=== PATIENT | male | born 1980 | race Hispanic/Latino ===

== ENCOUNTER 2020-05-07 05:29 | Observation (INO) | payer OTHER ==
[~2020-05-07] VITALS: Ht 172.7 cm; Wt 97.5 kg
[2020-05-07] VITALS (8 sets, daily range): BP systolic 98–163; BP diastolic 73–103
[2020-05-07] MEDS ORDERED: ACETAMINOPHEN 325 MG TAB PO ONE (05:45)
[2020-05-07] MEDS ORDERED: NITROGLYCERIN 2% OINT 1 GM PKT TOP ONE (05:45)
[2020-05-07] MEDS ORDERED: NITROGLYCERIN 2% OINT 1 GM PKT ONE (05:53)
--- NOTE | 2020-05-07 06:06 | Emergency Department Note ---
History of Present Illnes History of Present Illness Chief Complaint: Chest Pain History of Present Illness This is a 40 year old male presents with complaint of left-sided chest pain radiating to left shoulder since 1 AM states it woke him up out of sleep. States took 4 baby aspirin but the pain would go away pain subsided but never went away states pain and initially was 7 on a 10 scale currently 3 out of 10. Patient also reports he took his blood pressure before coming in at home was 187/120 patient does have a history of high blood pressure however is been off his blood pressure medications for the last 2 months. Denies family history of heart disease with his family history of hypertension.. Historian: Patient Arrival Mode: Car Onset (how long ago): hour(s) (4) Location: CHEST Quality: PAIN Radiation: Reports other (LEFT SHOUDLER) Severity: moderate Onset quality: sudden Duration (how long): hour(s) (4) Progression: improving Chronicity: new Context: Denies recent illness, Denies recent surgery Relieving factors: none Exacerbating factors: none Associated symptoms: Reports denies other symptoms Treatments prior to arrival: aspirin (324 MG) Past Medical/Family History Physician Review I have reviewed the patient's past medical and family history. Any updates have been documented here. Past Medical History Recent Fever: No Clinical Suspicion of Infectio: No New/Unexplained Change in Ment: No Past Medical History: Hypertension Past Surgical History: None Social History Smoking Cessation: Former smoker Counseling Performed: No Alcohol Use: Social Any Illegal Drug Use: No TB Exposure/Symptoms: No Physically hurt or threatened: No Family History Family history of heart diseas: No Other family history HTN Other Last Tetanus: DENIES Is patient up to date on immun: Yes Last Flu: DENIES Last Pneumovax: DENIES Review of Systems Review of Systems Constitutional: Reports no symptoms EENTM: Reports no symptoms Cardiovascular: Reports as per HPI Respiratory: Reports no symptoms Gastrointestinal: Reports no symptoms Genitourinary: Reports no symptoms Musculoskeletal: Reports no symptoms Integumentary: Reports no symptoms Neurological: Reports no symptoms Psychological: Reports no symptoms Endocrine: Reports no symptoms Hematological/Lymphatic: Reports no symptoms Physical Exam Related Data Allergies: Coded Allergies: No Known Allergies (Unverified , 05/07/20) Triage Vital Signs Vital Signs Date Time Temp Pulse Resp B/P (MAP) Pulse Ox O2 Delivery O2 Flow Rate FiO2 05/07/20 05:41 99.2 93 20 178/107 97 Vital signs reviewed: Yes Physical Exam CONSTITUTIONAL Constitutional: Present well-developed, Present well-nourished HENT HENT: Present normocephalic, Present atraumatic, Present oropharynx clear/moist, Present nose normal HENT L/R: Present left ext ear normal, Present right ext ear normal EYES Eyes: Reports PERRL, Reports conjunctivae normal NECK Neck: Present ROM normal PULMONARY Pulmonary: Present effort normal, Present breath sounds normal CARDIOVASCULAR Cardiovascular: Present regular rhythm, Present heart sounds normal, Present capillary refill normal, Present normal rate GASTROINTESTINAL Abdominal: Present soft, Present nontender, Present bowel sounds normal GENITOURINARY Genitourinary: Present exam deferred SKIN Skin: Present warm, Present dry MUSCULOSKELETAL Musculoskeletal: Present ROM normal NEUROLOGICAL Neurological: Present alert, Present oriented x 3, Present no gross motor or sensory deficits PSYCHOLOGICAL Psychological: Present mood/affect normal, Present judgement normal Results Laboratory Laboratory Laboratory Tests Test 05/07/20 05:56 White Blood Count 12.79 x10e3/uL (4.8-10.8) Red Blood Count 4.85 x10e6/uL (4.3-5.7) Hemoglobin 16.1 g/dL (14.0-18.0) Hematocrit 46.3 % (38.2-49.6) Mean Corpuscular Volume 95.5 fL (81-99) Mean Corpuscular Hemoglobin 33.2 pg (28-32) Mean Corpuscular Hemoglobin Concent 34.8 g/dL (31-35) Red Cell Distribution Width 12.7 % (11.7-14.4) Platelet Count 239 x10e3/uL (140-360) Neutrophils (%) (Auto) 63.9 % (38.7-80.0) Lymphocytes (%) (Auto) 25.2 % (18.0-39.1) Monocytes (%) (Auto) 6.8 % (4.4-11.3) Eosinophils (%) (Auto) 3.1 % (0.0-6.0) Basophils (%) (Auto) 0.5 % (0.0-1.0) Neutrophils # (Auto) 8.2 (2.1-6.9) Lymphocytes # (Auto) 3.2 (1.0-3.2) Monocytes # (Auto) 0.9 (0.2-0.8) Eosinophils # (Auto) 0.4 (0.0-0.4) Basophils # (Auto) 0.1 (0.0-0.1) Absolute Immature Granulocyte (auto 0.06 x10e3/uL (0-0.1) Prothrombin Time 11.9 seconds (11.9-14.5) Prothromb Time International Ratio 0.83 Activated Partial Thromboplast Time 27.2 seconds (23.8-35.5) Sodium Level 138 mmol/L (136-145) Potassium Level 3.8 mmol/L (3.5-5.1) Chloride Level 105 mmol/L (98-107) Carbon Dioxide Level 23 mmol/L (22-29) Anion Gap 13.8 mmol/L (8-16) Blood Urea Nitrogen 13 mg/dL (7-26) Creatinine 1.00 mg/dL (0.72-1.25) Estimat Glomerular Filtration Rate > 60 ML/MIN (60-) BUN/Creatinine Ratio 13 (6-25) Glucose Level 118 mg/dL (74-118) Calcium Level 9.6 mg/dL (8.4-10.2) Total Bilirubin 0.4 mg/dL (0.2-1.2) Aspartate Amino Transf (AST/SGOT) 19 IU/L (5-34) Alanine Aminotransferase (ALT/SGPT) 44 IU/L (0-55) Alkaline Phosphatase 104 IU/L (40-150) Creatine Kinase 127 IU/L (30-200) Creatine Kinase MB 0.90 ng/mL (0-5.0) Troponin I 0.009 ng/mL (0-0.300) B-Type Natriuretic Peptide 10.1 pg/mL (0-100) Total Protein 7.7 g/dL (6.5-8.1) Albumin 4.1 g/dL (3.5-5.0) Globulin 3.6 g/dL (2.3-3.5) Albumin/Globulin Ratio 1.1 (0.8-2.0) Lab results reviewed: Yes Imaging Imaging results reviewed: Yes Impressions EXAMINATION: CHEST SINGLE (PORTABLE) INDICATION: ^CHEST PAIN ^[id number] ^624 ^Y COMPARISON: None FINDINGS: AP view TUBES and LINES: None. LUNGS: Lungs are well inflated. Mild left basilar haziness. PLEURA: No pleural effusion or pneumothorax. HEART AND MEDIASTINUM: The cardiomediastinal silhouette is mildly prominent on this AP view. BONES AND SOFT TISSUES: No acute osseous lesion. Soft tissues are unremarkable. UPPER ABDOMEN: No free air under the diaphragm. IMPRESSION: Mild left basilar haziness, representing subsegmental atelectasis versus developing pneumonia in the appropriate clinical context. Signed by: Dr. Geovany [place] MD on 05/07/2020 6:36 AM Dictated By: GEOVANY [place] MD 5 Transcribed By: SHERRIE on 05/07/20635 COPY TO: OXANA RUVALCABA MD~ Procedures 12 Lead ECG Interpretation ECG Interpretation : ECG: ECG 1 Ore Charger: Interpreted by ED physician Date: May 07, 2020 Time: 05:46 Rhythm: sinus rhythm Rate: normal BPM: 90 QRS axis: normal ST segments normal: Yes T waves normal: Yes Other findings: no other findings Clinical Impression: normal ECG Assessment & Plan Medical Decision Making MDM Patient left sided chest pain rating left shoulder and elevated blood pressure. CBC, CMP, cardiac enzymes, BNP, chest x-ray, EKG, ordered to eval for myocardial infarction, intrathoracic abnormality, which light abnormality, pulmonary edema. Database 1 inch ordered to chest wall. I spoke with Dr. Arnago and Dr. Abigail Ortiz covering for Dr. Pearson Place patient in oBS FOR cardiac rule out and echocardiogram. Radiologist read patient's chest x-ray as left lower lobe haziness atelectasis versus pneumonia. Due to this Covid 19 test ordered to rule out Covid 19. Patient started on Rocephin and Zithromax IV. Dr. Dixon informed. Assessment & Plan Final Impression: (1) Chest pain (2) HTN (hypertension) (3) Pneumonia Depart Disposition: ADMITTED Last Vital Signs Date Time Temp Pulse Resp B/P (MAP) Pulse Ox O2 Delivery O2 Flow Rate FiO2 05/07/20 05:51 178/107 05/07/20 05:41 99.2 93 20 97 Medications in the ED Nitroglycerin 1 gm ONCE ONCE TOP Last administered on 05/07/20at 05:51; Admin Dose 1 GM; Start 05/07/20 at 05:45; Stop 05/07/20 at 05:46; Status DC Acetaminophen 650 mg ONCE ONCE PO Last administered on 05/07/20at 05:51; Admin Dose 650 MG; Start 05/07/20 at 05:45; Stop 05/07/20 at 05:53; Status DC Nitroglycerin 1 gm STK-MED ONCE .ROUTE ; Start 05/07/20 at 05:53; Stop 05/07/20 at 05:47; Status DC OXANA RUVALCABA MD May 07, 2020 06:06
[2020-05-07 06:07] LABS: BASOPHILS # (AUTO) 0.1 (0.0-0.1); BASOPHILS % 0.5 % (0.0-1.0); EOSINOPHILS # (AUTO) 0.4 (0.0-0.4); EOSINOPHILS % 3.1 % (0.0-6.0); HEMATOCRIT 46.3 % (38.2-49.6); HEMOGLOBIN 16.1 g/dL (14.0-18.0); LYMPHOCYTES # (AUTO) 3.2 (1.0-3.2); LYMPHOCYTES % 25.2 % (18.0-39.1); MEAN CORPUSCULAR HEMOGLOBIN 33.2 pg (28-32); MEAN CORPUSCULAR HGB CONC 34.8 g/dL (31-35); MEAN CORPUSCULAR VOLUME 95.5 fL (81-99); MONOCYTES # (AUTO) 0.9 (0.2-0.8); MONOCYTES % 6.8 % (4.4-11.3); NEUTROPHILS # (AUTO) 8.2 (2.1-6.9); NEUTROPHILS % 63.9 % (38.7-80.0); PLATELET COUNT 239 x10e3/uL (140-360); RED BLOOD COUNT 4.85 x10e6/uL (4.3-5.7); RED CELL DISTRIBUTION WIDTH 12.7 % (11.7-14.4)
[2020-05-07 06:19] LABS: INR 0.83; PROTHROMBIN TIME 11.9 seconds (11.9-14.5)
[2020-05-07 06:20] LABS: PARTIAL THROMBOPLASTIN TIME 27.2 seconds (23.8-35.5)
[2020-05-07 06:32] LABS: ALANINE AMINOTRANSFERASE 44 IU/L (0-55); ALBUMIN 4.1 g/dL (3.5-5.0); ALBUMIN/GLOBULIN RATIO 1.1 (0.8-2.0); ALKALINE PHOSPHATASE 104 IU/L (40-150); ANION GAP 13.8 mmol/L (8-16); BLOOD UREA NITROGEN 13 mg/dL (7-26); BUN/CREATININE RATIO 13 (6-25); CALCIUM 9.6 mg/dL (8.4-10.2); CARBON DIOXIDE 23 mmol/L (22-29); CHLORIDE 105 mmol/L (98-107); CREATINE KINASE 127 IU/L (30-200); EST GLOMERULAR FILTRATION RATE > 60 ML/MIN (60-); GLUCOSE 118 mg/dL (74-118); POTASSIUM 3.8 mmol/L (3.5-5.1); SODIUM 138 mmol/L (136-145)
--- NOTE | 2020-05-07 06:39 | Diagnostic Imaging Report ---
EXAMINATION: CHEST SINGLE (PORTABLE) INDICATION: ^CHEST PAIN ^[id number] ^0625 ^Y COMPARISON: None FINDINGS: AP view TUBES and LINES: None. LUNGS: Lungs are well inflated. Mild left basilar haziness. PLEURA: No pleural effusion or pneumothorax. HEART AND MEDIASTINUM: The cardiomediastinal silhouette is mildly prominent on this AP view. BONES AND SOFT TISSUES: No acute osseous lesion. Soft tissues are unremarkable. UPPER ABDOMEN: No free air under the diaphragm. IMPRESSION: Mild left basilar haziness, representing subsegmental atelectasis versus developing pneumonia in the appropriate clinical context. Signed by: Dr. Geovany Kaur MD on 05/07/2020 6:36 AM
[2020-05-07] MEDS ORDERED: AZITHROMYCIN 500MG/NS 250 ML 250 ML IV SCH (06:45)
[2020-05-07] MEDS ORDERED: ONDANSETRON HCL INJ 2MG/ML 2ML 2 MG/ML VIAL IV PRN (06:45)
[2020-05-07] MEDS: CEFTRIAXONE SOD 1 GM/NS 50 ML 50 ML IV SCH (06:55)
[2020-05-07] MEDS: FAMOTIDINE 20 MG/2 ML VIAL IV SCH ×2 (07:04→18:59)
--- OUTSIDE RECORDS SUMMARY | 2020-05-07 07:20 | XMS REPORT | Continuity of Care Document ---
Author Author [facility] Organization [facility] Address [address] [place] [address] [address] [place] [address] Phone Unavailable Care Team Providers Care Certified Coding Specialist Name Role Phone Nae RUVALCABA Attphys Unavailable TRISTON SANCHEZphys Unavailable Problems This patient has no known problems. Allergies, Adverse Reactions, Alerts This patient has no known allergies or adverse reactions. Medications This patient has no known medications. Procedures This patient has no known procedures. Results Test Description Test Time Test Comments Results Result Comments Source CHEST SINGLE (PORTABLE) 2020-05-07 06:35:[address] [address] Patient Name: SONYA JIMENEZ MR #: [id number] : 1980 Age/Sex: 40/M Req #: [id number] [facility] Physician: Ordered by: OXANA RUVALCABA MD Report #: [id number] Location: ER Room/Bed: Procedure: [id number] DX/CHEST SINGLE (PORTABLE) Exam Date: 05/07/20 Exam Time: 624 REPORT STATUS: Signed EXAMINATION: CHEST SINGLE (PORTABLE) INDICATION: CHEST PAIN [id number] Y COMPARISON: None FINDINGS: AP view TUBES and LINES: None. LUNGS: Lungs are well inflated. Mild left basilar haziness. PLEURA: No pleural effusion or pneumothorax. HEART AND MEDIASTINUM: The cardiomediastinal silhouette is mildly prominent on this AP view. BONES AND SOFT TISSUES: No acute osseous lesion. Soft tissues are unremarkable. UPPER ABDOMEN: No free air under the diaphragm. IMPRESSION: Mild left basilar haziness, representing subsegmental atelectasis versus developing pneumonia in the appropriate clinical context. Signed by: Dr. Geovany [place] MD on 05/07/2020 6:36 AM Dictated By: GEOVANY [place] MD 5 Transcribed By: SHERRIE on 05/07/20635 COPY TO: OXANA RUVALCABA MD
--- NOTE | 2020-05-07 08:04 | NUR ---
Report attempted was told that nurse would call back.
--- NOTE | 2020-05-07 08:55 | NUR ---
Received patient from ER via stretcher. AAOX4 to time, person, place, situation. Respirations even and unlabored. Tele #[phone] with 1st degree block. Denies chest pain. Oriented to room. Instructed to use call light for assistance. Voiced understanding.
[2020-05-07] MEDS ORDERED: ASPIR 8181 MG PO (09:28)
[2020-05-07] MEDS ORDERED: losartan PO (09:42)
--- NOTE | 2020-05-07 10:02 | Consultation ---
DATE OF CONSULTATION: Pulmonary Critical Care Consultation CHIEF COMPLAINT: Chest pain. HISTORY OF PRESENT ILLNESS: The patient is a 40-year-old man. He has no prior history of cardiopulmonary disease. He reports pain in the upper left chest for 2-3 days. The pain is fairly constant and does not change with respiration. It does not change with movement. It is not related to exertion. After arriving in the Emergency Department, he was found to have a chest x-ray with infiltrate, suggestive of viral pneumonia. His also tested positive for COVID-19. He denies any fever or cough. He is not having any nausea or vomiting. PAST SURGICAL HISTORY: Noncontributory. PAST MEDICAL HISTORY: 1. No prior cardiac disease. 2. No prior asthma or respiratory problems. 3. No history of diabetes. 4. Hypertension. ALLERGIES: NO KNOWN DRUG ALLERGIES. FAMILY HISTORY: His tested positive for COVID. SOCIAL HISTORY: The patient is not an active smoker or an active drinker. REVIEW OF SYSTEMS: There is no fever. He is not having any headache. He has no neck pain. He is not having any cough. He does not complain of dyspnea. He does have some chest pain on the left side near his shoulder and pectoralis area. He does not complain of any nausea or vomiting. There is no leg edema. He has no neurological abnormalities. OBJECTIVE: VITAL SIGNS: The patient is afebrile. The blood pressure is 150/102, saturation is 98% and the pulse is 85. Respiratory rate is 18. HEENT: Shows no facial swelling or erythema. CARDIAC: Reveals regular rate and rhythm with normal S1 and S2. LUNGS: Auscultation of lungs reveal crackles at the bases. There is no wheezing. ABDOMEN: Soft, nontender. There is no rebound or guarding. EXTREMITIES: Shows no leg edema or calf tenderness. There is no cyanosis or clubbing. SKIN: Shows no rashes. NEUROLOGICAL: Shows no focal abnormalities. LABORATORY DATA: BUN to creatinine ratio is normal. Other electrolytes are within normal limits. White blood cell count is 12.8, hemoglobin is 16.1. The platelet count is 234. RADIOGRAPHIC DATA: Chest x-ray shows left basilar haziness representing subsegmental atelectasis versus pneumonia. ASSESSMENT: 1. Viral pneumonia. 2. Hypertension. 3. Chest pain. PLAN: 1. Cardiac enzymes. Echocardiogram and Cardiology evaluation. 2. Antibiotics. 3. COVID-19 testing. 4. Lovenox. MD ZACH Roman/LORI /[id number]
[2020-05-07] MEDS: ASPIRIN 81 MG ENTERIC COATED PO SCH (11:51)
[2020-05-07] MEDS: NITROGLYCERIN 2% OINT 1 GM PKT TOP SCH ×2 (12:00→16:47)
--- NOTE | 2020-05-07 12:45 | NUR ---
aware patient covid +
--- NOTE | 2020-05-07 15:33 | Consultation ---
DATE OF CONSULTATION: 05/07/2020 Cardiology Consultation REQUESTING PHYSICIAN: Owen Dee MD. REASON FOR CONSULTATION: Chest pain. HISTORY OF PRESENT ILLNESS: This is a 40-year-old man with history of hypertension, hyperlipidemia, who presents with complaints of chest pain. The patient reports he has been having chest pain and shortness of breath for the last couple days, described the chest pain as in his left upper chest with radiation to the shoulder and left arm. He notes the pain is worse with lying down and is unchanged with walking. The pain worsened last night such that it was 7/10 in severity and he noted his blood pressure was elevated, so he presented to the ER for further evaluation. The patient denies any nausea, but does note he has been having night sweats as well as shortness of breath when he lays down for the last few nights. He denies any fever, edema, or paroxysmal nocturnal dyspnea. Of note, his was reported to be COVID-19 positive. REVIEW OF SYSTEMS: Negative except as per HPI. PAST MEDICAL HISTORY: Hypertension and hyperlipidemia. PAST SURGICAL HISTORY: Denies. ALLERGIES: NO KNOWN DRUG ALLERGIES. MEDICATIONS: Please see medication list. SOCIAL HISTORY: Denies tobacco or illicit drugs. Does endorse alcohol use. FAMILY HISTORY: Pertinent for brother with hypertension. PHYSICAL EXAMINATION: VITAL SIGNS: Temperature 98.1 degrees, pulse 80, respiratory rate 19, blood pressure 147/102, and oxygen saturation 98% on room air. The patient was not examined. LABORATORY DATA: WBC 12.79, hemoglobin 16.1, hematocrit 46.3, platelets 239. Sodium 138, potassium 3.8, chloride 105, CO2 of 23, BUN 13, and creatinine 1. COVID-19 positive. EKG normal sinus rhythm, normal ECG. Echocardiogram was reviewed with normal LV size and systolic function. LVEF is 55-60%. Diastolic filling pattern indicates impaired relaxation. There were no significant valvular abnormalities. Right ventricle systolic pressure could not be estimated due to lack of adequate TR jet. IMPRESSION: 1. Coronavirus disease - 19, positive. 2. Viral pneumonia secondary to above. 3. Chest pain. 4. Hypertension. 5. Hyperlipidemia. RECOMMENDATIONS: Trend troponin to rule out myocardial infarction. If the patient rules out, no further cardiac evaluation will be indicated at this time. Recommend outpatient ischemic evaluation once he has recovered from his current illness. Start losartan for blood pressure control. Fasting lipid panel in the morning. Thank you for this consult. We will continue to follow. Abigail Arce MD ABS/MODL /[id number]
[2020-05-07] MEDS: LOSARTAN POTASSIUM 100 MG TAB PO SCH (16:47)
[2020-05-07] MEDS: ACETAMINOPHEN 325 MG TAB PO PRN (16:47)
[2020-05-07] MEDS ORDERED: ENOXAPARIN SOD INJ 40 MG/0.4 ML SYR SC SCH (17:00)
[2020-05-07 17:30] LABS: CREATINE KINASE MB 0.7 ng/mL (0-5.0)
--- NOTE | 2020-05-07 19:23 | NUR ---
Report given to oncoming nurse of patient's status. Resting in bed. No s/s of acute distress noted. Side rails upx2, call light within reach.
--- NOTE | 2020-05-07 21:32 | NUR ---
Patient sitting on a chair. Complain of headache. Patient states he had headache since Nitrobid was started. He doesn't want any medication at this time. Refused bed alarm and states he don't need it. No complain of dizziness or light headedness. Bed in lowest position and locked. Educated to used call light for assistance. Patient expressed understanding.
[2020-05-08] VITALS: BP 139/82
[2020-05-08] MEDS: ACETAMINOPHEN 325 MG TAB PO PRN ×2 (01:42→12:16)
[2020-05-08 04:00] VITALS: BP 117/75
[2020-05-08] MEDS ORDERED: SODIUM CHLORIDE 0.9% 250ML 250 ML ONE (05:16)
[2020-05-08] MEDS: NITROGLYCERIN 2% OINT 1 GM PKT TOP SCH ×3 (05:40→11:44)
[2020-05-08] MEDS: FAMOTIDINE 20 MG/2 ML VIAL IV SCH (05:40)
[2020-05-08] MEDS: CEFTRIAXONE SOD 1 GM/NS 50 ML 50 ML IV SCH (05:40)
[2020-05-08 06:00] LABS: BASOPHILS % 0.5 % (0.0-1.0); EOSINOPHILS # (AUTO) 0.3 (0.0-0.4); EOSINOPHILS % 3.1 % (0.0-6.0); HEMOGLOBIN 15.9 g/dL (14.0-18.0); LYMPHOCYTES # (AUTO) 2.3 (1.0-3.2); LYMPHOCYTES % 27.1 % (18.0-39.1); MEAN CORPUSCULAR HGB CONC 35.3 g/dL (31-35); MEAN CORPUSCULAR VOLUME 96.4 fL (81-99); MONOCYTES # (AUTO) 0.6 (0.2-0.8); MONOCYTES % 7.6 % (4.4-11.3); NEUTROPHILS # (AUTO) 5.2 (2.1-6.9); NEUTROPHILS % 61.5 % (38.7-80.0); PLATELET COUNT 215 x10e3/uL (140-360); RED BLOOD COUNT 4.67 x10e6/uL (4.3-5.7); RED CELL DISTRIBUTION WIDTH 12.6 % (11.7-14.4)
[2020-05-08 06:34] LABS: ALANINE AMINOTRANSFERASE 38 IU/L (0-55); ALBUMIN 3.8 g/dL (3.5-5.0); ALBUMIN/GLOBULIN RATIO 1.1 (0.8-2.0); ALKALINE PHOSPHATASE 77 IU/L (40-150); ANION GAP 14.8 mmol/L (8-16); BLOOD UREA NITROGEN 8 mg/dL (7-26); BUN/CREATININE RATIO 9 (6-25); CALCIUM 9.6 mg/dL (8.4-10.2); CARBON DIOXIDE 21 mmol/L (22-29); CHLORIDE 106 mmol/L (98-107); CREATININE, SERUM 0.85 mg/dL (0.72-1.25); EST GLOMERULAR FILTRATION RATE > 60 ML/MIN (60-); GLUCOSE 109 mg/dL (74-118); POTASSIUM 3.8 mmol/L (3.5-5.1); SODIUM 138 mmol/L (136-145)
[2020-05-08 07:00] LABS: CREATINE KINASE MB 0.4 ng/mL (0-5.0)
[2020-05-08 08:00] VITALS: BP 124/84
[2020-05-08 08:09] LABS: CHOL/HDL RATIO 5.2 (3.9-4.7)
[2020-05-08 09:00] VITALS: BP 124/84
[2020-05-08] MEDS ORDERED: AZITHROMYCIN 500MG/NS 250 ML 250 ML IV SCH (09:00)
[2020-05-08] MEDS: LOSARTAN POTASSIUM 100 MG TAB PO SCH (09:34)
[2020-05-08] MEDS: ASPIRIN 81 MG ENTERIC COATED PO SCH (09:34)
[2020-05-08 12:54] VITALS: BP 172/97
--- NOTE | 2020-05-08 13:03 | Consultation ---
DATE OF CONSULTATION: HISTORY OF PRESENT ILLNESS: This is a 40-year-old male, no past medical history, comes in with pain in left upper chest for 2 to 3 days, not feeling well, came to the emergency room. Chest x-ray was negative for pneumonia. COVID-19 was positive, so he is being admitted. PAST MEDICAL HISTORY: Denies. PAST SURGICAL HISTORY: Denies. ALLERGIES: NKA. SOCIAL HISTORY: There is no smoking, drug abuse, or alcohol abuse. FAMILY HISTORY: Unremarkable. PHYSICAL EXAMINATION: GENERAL: He is currently alert, oriented, does not seem in acute distress. VITAL SIGNS: Stable, afebrile. HEENT: Not icteric. NECK: Supple. CHEST: Clear. ABDOMEN: Soft. Bowel sounds present. EXTREMITIES: No edema. SKIN: No rash. IMPRESSION: COVID-19, present on admission. Clinically doing well. He is being evaluated by Cardiology. From Infectious Disease point of view, he is stable to be discharged once he is cleared by Cardiology. We will continue as ordered. We will follow. MD MYRANDA Oscar/MODNae /[id number]
[2020-05-08] MEDS ORDERED: ONDANSETRON HCL 4 MG ORAL DISINTEGRATING TAB PO PRN (13:30)
--- NOTE | 2020-05-08 13:31 | NUR ---
Patient received discharge order from Dr. Brand. Patient cleared from . Patient told to follow up with , take OTC Zinc and Asorbic Acid, and Tylenol for fever. Patient given discharge instructions, answered questions, and took out his IV and covered with a dry, clean dressing. Patient had no other issues. Patient discharged at 1330, ambulated to his own vehicle.
--- NOTE | 2020-05-08 16:49 | Progress Note ---
DATE: SUBJECTIVE: The patient is having low-grade fevers. He was seen by Cardiology. He is felt not to have any primary cardiac issues. PHYSICAL EXAMINATION: VITAL SIGNS: Blood pressure is 172/97 and saturation is 99%. Temperature is 100.2. HEENT: Shows no facial swelling or erythema. CARDIAC: Reveals regular rate and rhythm with normal S1 and S2. LUNGS: Auscultation of lungs reveals crackles at the bases. There is no wheezing. ABDOMEN: Soft and nontender. There is no rebound or guarding. EXTREMITIES: Shows no leg edema or calf tenderness. There is no cyanosis or clubbing. SKIN: Shows no rashes. IMPRESSION: 1. COVID-19 and viral pneumonia. 2. Hypertension. PLAN: 1. Antihypertensive medications. 2. Possible discharge home. 3. Tylenol and Zithromax as outpatient. 4. Follow up with Dr. Pereyra in 2 weeks. Shayan Turner MD [facility]/LORI /[id number]
--- NOTE | 2020-05-08 20:20 | Progress Note ---
DATE: SUBJECTIVE: Mr. Wagoner is doing well. There is no new complaint. REVIEW OF SYSTEMS: HEENT: Negative. PULMONARY: Negative. CARDIAC: Negative. PHYSICAL EXAMINATION: GENERAL: He is currently alert, oriented, does not seem to be in acute distress. VITAL SIGNS: Stable, currently afebrile. HEENT: He is not icteric. NECK: Supple. LUNGS: Clear. ABDOMEN: Soft. IMPRESSION: Coronavirus disease-19, doing well. There is no shortness of breath, to be discharged home with aspirin once a day. Chest pain, probably muscular Discharge home, stay at home for 2 weeks. Follow up with me in 2 weeks. We will check him again after that. MD MYRANDA Oscar/LORI /[id number]
== END 2020-05-08 15:54 | disposition home or self-care (01) ==
LOC: ER 05:29 → ERHOLD 06:34 → IMCU 09:03
DX: U07.1 COVID-19 (principal); J12.89 Other viral pneumonia; I10 Essential (primary) hypertension; E78.5 Hyperlipidemia, unspecified; R07.89 Other chest pain
CPT/HCPCS: 36415 ×2; 71045; 80053 ×2; 80061; 82550 ×2; 82553 ×2; 83880; 84484 ×2; 85025 ×2; 85610; 85730; 87040; 87635; 93005; 93306; 99284; G0378 ×2; J0456 ×2; J0696 ×2; J1650; J7050

== ENCOUNTER 2021-02-01 18:40 | Emergency (ER) | payer OTHER ==
[~2021-02-01] VITALS: Ht 172.7 cm; Wt 102.1 kg
[~2021-02-01 18:40] MED LIST: ASPIR 8181 MG PO; losartan PO
[2021-02-01 19:17] LABS: BASOPHILS # (AUTO) 0.1 (0.0-0.1); BASOPHILS % 0.9 % (0.0-1.0); EOSINOPHILS # (AUTO) 0.4 (0.0-0.4); HEMATOCRIT 44.3 % (38.2-49.6); HEMOGLOBIN 15.7 g/dL (14.0-18.0); LYMPHOCYTES # (AUTO) 4.6 (1.0-3.2); LYMPHOCYTES % 47.6 % (18.0-39.1); MEAN CORPUSCULAR HEMOGLOBIN 33.9 pg (28-32); MEAN CORPUSCULAR HGB CONC 35.4 g/dL (31-35); MEAN CORPUSCULAR VOLUME 95.7 fL (81-99); MONOCYTES # (AUTO) 0.8 (0.2-0.8); MONOCYTES % 8.1 % (4.4-11.3); NEUTROPHILS # (AUTO) 3.8 (2.1-6.9); NEUTROPHILS % 39.1 % (38.7-80.0); PLATELET COUNT 225 x10e3/uL (140-360); RED BLOOD COUNT 4.63 x10e6/uL (4.3-5.7); RED CELL DISTRIBUTION WIDTH 12.3 % (11.7-14.4)
[2021-02-01 19:34] LABS: ALANINE AMINOTRANSFERASE 104 IU/L (0-55); ALBUMIN 4.3 g/dL (3.5-5.0); ALKALINE PHOSPHATASE 93 IU/L (40-150); ANION GAP 16.4 mmol/L (8-16); BLOOD UREA NITROGEN 13 mg/dL (7-26); BUN/CREATININE RATIO 14 (6-25); CALCIUM 9.1 mg/dL (8.4-10.2); CARBON DIOXIDE 22 mmol/L (22-29); CHLORIDE 104 mmol/L (98-107); CREATINE KINASE 131 IU/L (30-200); CREATININE, SERUM 0.94 mg/dL (0.72-1.25); EST GLOMERULAR FILTRATION RATE > 60 ML/MIN (60-); GLUCOSE 96 mg/dL (74-118); POTASSIUM 4.4 mmol/L (3.5-5.1); SODIUM 138 mmol/L (136-145)
[2021-02-01 21:56] VITALS: BP 164/109
== END 2021-02-01 21:33 | disposition home or self-care (01) ==
LOC: ER 20:03
DX: I10 Essential (primary) hypertension (principal); Z20.822 Contact with and (suspected) exposure to COVID-19
CPT/HCPCS: 36415; 70450; 71045; 80053; 82550; 82553; 83880; 84484; 85025; 93005; 99284; U0002

== ENCOUNTER 2021-08-09 06:52 | Emergency (ER) | payer BC, OTHER ==
[~2021-08-09] VITALS: Ht 175.3 cm; Wt 97.5 kg
== END 2021-08-09 07:54 | disposition home or self-care (01) ==
LOC: ER 07:21
DX: R42 Dizziness and giddiness (principal); I10 Essential (primary) hypertension
CPT/HCPCS: 36415; 82948; 93005; 99283

== ENCOUNTER → 2022-08-16 | Outpatient (CLI) | payer BC | LOC: US 07:42 | PROVIDERS: ATTEND Family Medicine | DX: R22.2 Localized swelling, mass and lump, trunk (principal) | CPT/HCPCS: 76882 ==